=== PATIENT | male | born 1970 | race Caucasian/White ===

== ENCOUNTER 2017-05-01 09:08 | Emergency (ER) | payer OTHER, BC ==
[2017-05-01 09:14] VITALS: BP 146/94; BMI 40.1
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
[2017-05-01] MEDS ORDERED: TORADOL 60 MG VIAL ONE ×2 (10:59→11:41)
[2017-05-01] MEDS ORDERED: TORADOL 60 MG VIAL IM ONE (11:32)
== END 2017-05-01 12:16 | disposition home or self-care (01) ==
LOC: ER 09:08
DX: S13.9XXA Sprain of joints and ligaments of unspecified parts of neck, initial encounter (principal); G44.319 Acute post-traumatic headache, not intractable; X58.XXXA Exposure to other specified factors, initial encounter
CPT/HCPCS: 70450; 72125; 96372; 99282; J1885